=== PATIENT | male | born 1990 | race Two or more races ===

== ENCOUNTER 2022-01-20 18:43 | Inpatient (IN) | payer OTHER ==
[~2022-01-20] VITALS: Ht 175.3 cm; Wt 65.8 kg
[2022-01-20] MEDS ORDERED: PANADOL (20:46)
[2022-01-26] MEDS ORDERED: PANADOL EXTRA500 MG (08:15)
== END 2022-01-30 17:08 | disposition home or self-care (01) | DRG 356 ==
LOC: ER 18:43 → SURG 01-21 02:06 → SURH 01-23 15:55
PROVIDERS: ADMIT Internal Medicine; ATTEND Internal Medicine
PROC: CW1NLZZ Planar Nuclear Medicine Imaging of Whole Body using Gallium 67 (Ga-67) (ICD-10-PCS; 2022-01-22)
PROC: B24BZZZ Ultrasonography of Heart with Aorta (ICD-10-PCS; 2022-01-25)
PROC: 0W9H3ZX Drainage of Retroperitoneum, Percutaneous Approach, Diagnostic (ICD-10-PCS; principal; 2022-01-27)
PROC: 02HV33Z Insertion of Infusion Device into Superior Vena Cava, Percutaneous Approach (ICD-10-PCS; 2022-01-27)
DX: K52.89 Other specified noninfective gastroenteritis and colitis (principal); K68.19 Other retroperitoneal abscess; L94.9 Localized connective tissue disorder, unspecified; I88.8 Other nonspecific lymphadenitis; K59.09 Other constipation; Z20.822 Contact with and (suspected) exposure to COVID-19; B95.7 Other staphylococcus as the cause of diseases classified elsewhere

== ENCOUNTER 2022-09-26 17:55 | Emergency (ER) | payer OTHER ==
[~2022-09-26] VITALS: Ht 165.1 cm; Wt 65.8 kg
[~2022-09-26 17:55] MED LIST: PANADOL; PANADOL EXTRA500 MG
== END 2022-09-26 21:17 | disposition home or self-care (01) ==
LOC: ER 17:55
DX: R10.11 Right upper quadrant pain (principal); Z87.898 Personal history of other specified conditions; Z91.013 Allergy to seafood